=== PATIENT | male | born 1980 | race Hispanic/Latino ===

== ENCOUNTER 2016-10-30 10:47 | Emergency (ER) | payer SELFPAY ==
[2016-10-30 11:53] LABS: HEMATOCRIT 42.9 % (39.0-50.0); HEMOGLOBIN 14.8 g/dl (14.0-18.0); IMMATURE GRANULOCYTES 0.4 % (0.0-1.0); MEAN CORPUSCULAR HGB 28.6 pG CALC (26.0-32.0); MEAN CORPUSCULAR HGB CONC 34.5 g/L CALC (32.0-36.0); NEUT# 6.73 thou/uL (1.82-7.42); RED BLOOD COUNT 5.17 mill/uL (4.70-6.10); RED CELL DISTRI WIDTH 12.9 % (11.5-15.5)
[2016-10-30 12:17] LABS: ALBUMIN 4.2 g/dL (3.2-5.0); ALKALINE PHOSPHATASE 168 u/l (38-126); BILIRUBIN, TOTAL 0.7 mg/dL (0.0-1.4); BUN 9 mg/dL (9-20); BUN/CREATININE RATIO 19 (12-20 (CALC)); CALCIUM 9.8 mg/dL (8.4-10.2); CARBON DIOXIDE 25 mmol/l (22-30); CHLORIDE 101 mmol/l (95-108); CREATININE 0.5 mg/dL (0.7-1.3); GFR > 60 ML/MIN (>=60 (CALC)); GFR FOR AFR.AMER. > 60 ML/MIN (>=60 (CALC)); POTASSIUM 4.2 mmol/l (3.5-5.1); SGOT/AST 29 u/l (17-59); SGPT/ALT 50 u/l (21-72); TOTAL PROTEIN 7.6 g/dL (6.3-8.2)
[2016-10-30 12:22] LABS: ANION GAP 18 (6-22 (CALC)); SODIUM 140 mmol/l (137-146)
[2016-10-30 12:34] LABS: GLUCOSE 555 mg/dL (75-110)
[2016-10-30] MEDS ORDERED: AUGMENTIN500TAB PO (14:50)
[2016-10-30] MEDS ORDERED: METFORMIN500 M2 PO (14:50)
[2016-10-30 14:54] VITALS: BP 141/70
== END 2016-10-30 15:22 | disposition home or self-care (01) | DRG 603 ==
LOC: ED 10:47
PROVIDERS: Emergency Medicine
DX: L03.115 Cellulitis of right lower limb (principal); E11.9 Type 2 diabetes mellitus without complications